=== PATIENT | female | born 1975 | race Caucasian/White ===

== ENCOUNTER 2017-06-02 17:21 | Emergency (ER) | payer BC ==
[2017-06-02 17:27] VITALS: BP 148/96; PULSE 76; TEMP 98.5; BMI 20.7
[2017-06-02] MEDS ORDERED: KETOROLAC TROMETHAMINE 60 MG/2 ML VIAL IM ONE (19:07)
[2017-06-02] MEDS ORDERED: diazePAM 5 MG TABLET PO ONE (19:07)
[2017-06-02] MEDS ORDERED: KETOROLAC TROMETHAMINE 60 MG/2 ML VIAL ONE (19:10)
[2017-06-02] MEDS ORDERED: diazePAM 5 MG TABLET ONE (19:10)
--- NOTE | 2017-06-02 19:38 | PDOC ---
History of Present Illness - General Chief Complaint: Back Pain Stated Complaint: BACK PAIN Time Seen by Provider: 06/02/17 18:14 - History of Present Illness Initial Comments: 06/02/17 19:33 CHIEF COMPLAINT: lower back pain HISTORY OF PRESENT ILLNESS: 41 yo F with no PMH presents to [facility] with lower back pain radiating to top of legs x 2 days. Patient states two days ago she reached for her purse on a stairwell and when she tried to pick it up she felt a tightness in her back. Over the past two days she has had increased pain and the pain is "much worse" with sitting. Patient denies any loss of sensation to her legs, any loss of bowel or bladder function, and any numbness or tingling to her legs. No recent travel or sick contacts. PAST MEDICAL HISTORY: Denies past medical history FAMILY HISTORY: Denies SOCIAL HISTORY: Denies tobacco, alcohol, illicit drug use. SURGICAL HISTORY: Denies ALLERGIES: No known drug allergies REVIEW OF SYSTEMS General/Constitutional: Denies fever or chills. Denies weakness, weight change. HEENT: Denies change in vision. Denies ear pain or discharge. Denies sore throat. Cardiovascular: Denies chest pain or shortness of breath. Respiratory: Denies cough, wheezing, or hemoptysis. Gastrointestinal: Denies nausea, vomiting, diarrhea or constipation. Denies rectal bleeding. Genitourinary: Denies dysuria, frequency, or change in urination. Musculoskeletal: Denies joint or muscle swelling or pain. Denies neck or back pain. Skin and breasts: Denies rash or easy bruising. PHYSICAL EXAM General Appearance: Well-appearing, appropriately dressed. No apparent distress , no intoxication. HEENT: EOMI, PERRLA, normal ENT inspection, normal voice, TMs normal, pharynx normal. No conjunctival pallor. No photophobia, scleral icterus. Neck: Supple. Trachea midline. No tenderness, rigidity, carotid bruit, stridor , lymphadenopathy, or thyromegaly. Respiratory/Chest: Lungs CTAB. No shortness of breath, chest tenderness, respiratory distress, accessory muscle use. No crackles, rales, rhonchi, stridor , wheezing, dullness Cardiovascular: RRR. S1, S2. No JVD, murmur, bradycardia, tachycardia. Vascular Pulses: Dorsalis-Pedis (R): 2+, Dorsalis-Pedis (L): 2+ Gastrointestinal/Abdominal: Normal bowel sounds. Abdomen soft, non-distended. No tenderness or rebound tenderness. No organomegaly, pulsatile mass, guarding , hernia, hepatomegaly, splenomegaly. Lymphatic: No adenopathy, tenderness. Musculoskeletal/Extremities: Normal inspection. FROM of all extremities, normal capillary refill. Pelvis Stable. No CVA tenderness. No tenderness to extremities, pedal edema, swelling, erythema or deformity. Integumentary: Appropriate color, dry, warm. No cyanosis, erythema, jaundice or rash Neurologic: gravel weigher II-XII intact. Fully oriented, alert. Appropriate mood/affect. Motor strength 5/5. No appreciable EOM palsy, facial droop or sensory deficit. Past History - Past Medical History Allergies/Adverse Reactions: Allergies Allergy/AdvReac Type Severity Reaction Status Date / Time No Known Allergies Allergy Verified 06/02/17 17:27 Home Medications: Ambulatory Orders Cyclobenzaprine HCl 7.5 mg PO HS PRN #7 tablet 06/02/17 Naproxen 250 mg PO BID #14 tablet 06/02/17 Other medical history: NONE - Psycho/Social/Smoking Cessation Hx Anxiety: No Suicidal Ideation: No Smoking History: Never smoked Hx Alcohol Use: No Drug/Substance Use Hx: No Substance Use Type: None *Physical Exam - Vital Signs Last Vital Signs Temp Pulse Resp BP Pulse Ox 98.5 F 76 20 148/96 100 06/02/17 17:23 06/02/17 17:23 06/02/17 17:23 06/02/17 17:23 06/02/17 17:23 ED Treatment Course - ADDITIONAL ORDERS Additional order review: Laboratory Results 06/02/17 18:50 Urine HCG, Qual Negative - Medications Given in the ED: ED Medications Discontinued Medications Generic Name Dose Route Start Last Admin Trade Name Freq PRN Reason Stop Dose Admin Diazepam 5 mg 06/02/17 19:07 06/02/17 19:15 Valium - PO 06/02/17 19:08 5 mg ONCE ONE Administration Ketorolac Tromethamine 60 mg 06/02/17 19:07 06/02/17 19:15 Toradol Injection - IM 06/02/17 19:08 60 mg ONCE ONE Administration Medical Decision Making - Medical Decision Making 08/26/17 19:36 41 yo F with no PMH presents to [facility] with lower back pain radiating to top of legs x 2 days. -upreg -60 mg Toradol -5 mg Valium - patient states she did not drive, her friend drove her here today *DC/Admit/Observation/Transfer Diagnosis at time of Disposition: Back pain Qualifiers: Back pain location: low back pain Chronicity: acute Back pain laterality: midline Sciatica presence: with sciatica Sciatica laterality: bilateral sciatica Qualified Code(s): M54.42 - Lumbago with sciatica, left side - Discharge Dispostion Disposition: HOME Condition at time of disposition: Stable Admit: No - Prescriptions Prescriptions: Cyclobenzaprine HCl 7.5 mg PO HS PRN #7 tablet PRN Reason: Pain Naproxen 250 mg PO BID #14 tablet - Referrals Referrals: Gage Sawyer MD [Staff Physician] - - Patient Instructions Printed Discharge Instructions: DI for Back Pain With Sciatica Additional Instructions: Please take medications as prescribed; do not take Flexeril while drinking alcohol, driving, or operating machinery. Please follow up with orthopedics ( referral provided) in 3-5 days if symptoms persist. If you experience any loss of bowel or bladder function; loss of sensation, tingling, or numbness to your legs, or inability to walk, please return to the ER.
== END 2017-06-02 19:46 | disposition home or self-care (01) ==
LOC: JERFT 17:21
PROC: 3E0233Z Introduction of Anti-inflammatory into Muscle, Percutaneous Approach (ICD-10-PCS; principal; 2017-06-02)
DX: M54.42 Lumbago with sciatica, left side (principal); M54.41 Lumbago with sciatica, right side
CPT/HCPCS: 84703; 99281-25